=== PATIENT | male | born 1955 | race Two or more races ===

== ENCOUNTER 2024-11-21 12:50 | Day surgery (SDC) | payer MEDICAID, SELFPAY ==
[2024-11-21] VITALS (13 sets, daily range): BP systolic 94–130; BP diastolic 70–85; PULSE 61–75; RESP 12–23; TEMP 36.7; O2SAT 94–100; BMI 23.3
[2024-11-21] MEDS: SODIUM CHLORIDE 0.9% 250 ML 250 ML 125 ML IV (14:43)
[2024-11-21] MEDS: fentaNYL CIT INJ 50 mCg/ML AMP 2ML (ASD USE ONLY) IV (14:44)
[2024-11-21] MEDS: MIDAZOLAM INJ 1 MG/ML VIAL 2 ML (ASD USE ONLY) 2 MG IV (14:44)
--- NOTE | 2024-11-21 16:28 | SUR.PHASEII ---
1500: Pt received in [facility]. Report from [facility]. Pt sleepy. Easily aroused. Resp even, unlabored. VS stable. Denies pain. 1530: Pt more awake, alert. Sitting up tolerating po fluids with no difficulty swallowing and no n/v. 1555: Pt fully awake, oriented x3. Pt assisted to restroom. Ambulation steady. Pt requested brother in law interpret for him. Both stated understanding of discharge instructions. Pt also instructed to make follow up appointment with Dr. Lara to be seen in 3 weeks. Pt discharged from [facility] in stable condition.
== END 2024-11-21 15:55 | disposition home or self-care (01) ==
PROVIDERS: PCP Family Medicine; Referring Provider Surgery; Visit Provider Surgery
PROC: 0DBE8ZX Excision of Large Intestine, Via Natural or Artificial Opening Endoscopic, Diagnostic (ICD-10-PCS; CPT 45380; principal; 2024-11-21 13:00)
DX: Z12.11 Encounter for screening for malignant neoplasm of colon (principal); K57.30 Diverticulosis of large intestine without perforation or abscess without bleeding; D12.3 Benign neoplasm of transverse colon; I83.813 Varicose veins of bilateral lower extremities with pain
CPT/HCPCS: 45385; A4217; A4649; J2250; J3010; J7050